=== PATIENT | female | born 1995 | race Caucasian/White ===

== ENCOUNTER → 2016-04-08 | Outpatient (REF) | payer OTHER ==
[~2016-04-08] MED LIST: ACET-654 PO; CIPR500T89 PO; IBUP60TA PO; PERCOCET PO
[2016-04-08 18:43] LABS: ALBUMIN 3.9 GM/DL (3.2-5.2); ALKALINE PHOSPHATASE 94 U/L (45-117); ALT/SGPT 56 U/L (12-78); ANION GAP 7 MEQ/L (8-16); AST/SGOT 26 U/L (15-37); BILIRUBIN,TOTAL 0.3 MG/DL (0.2-1.0); BLOOD UREA NITROGEN 12 MG/DL (7-18); CALCIUM LEVEL 8.9 MG/DL (8.5-10.1); CARBON DIOXIDE LEVEL 26 MEQ/L (21-32); CHLORIDE LEVEL 106 MEQ/L (98-107); CREATININE FOR GFR 0.74 MG/DL (0.55-1.02); GLOMERULAR FILTRATION RATE > 60.0 (>60); GLUCOSE, FASTING 82 MG/DL (70-105); POTASSIUM SERUM 4.8 MEQ/L (3.5-5.1); SODIUM LEVEL 139 MEQ/L (136-145); TOTAL PROTEIN 7.8 GM/DL (6.4-8.2)
[2016-04-08 18:44] LABS: BASO % 0.4 % (0.0-1.0); EOS # 0.2 K/mm3 (0.0-0.50); EOS % 1.7 % (0.0-3.0); LARGE UNSTAINED CELL # 0.2 K/mm3 (0.0-0.4); LARGE UNSTAINED CELL % 1.7 % (0.0-4.0); LYMPH # 3.3 K/mm3 (1.5-6.5); LYMPH % 23.6 % (24.0-44.0); MEAN CORPUSCULAR HEMOGLOBIN 27.6 pg (27.0-33.0); MEAN CORPUSCULAR HGB CONC 32.2 g/dl (32.0-36.5); MEAN CORPUSCULAR VOLUME 85.8 fl (80.0-96.0); MONO # 0.7 K/mm3 (0.0-0.8); MONO % 5.2 % (0.0-5.0); NEUTROPHILS # 9.3 K/mm3 (1.8-7.7); NEUTROPHILS % 67.5 % (36.0-66.0); PLATELET COUNT, AUTOMATED 331 k/mm3 (150-450); RED CELL DISTRIBUTION WIDTH 12.2 % (11.5-14.5); WHITE BLOOD COUNT 13.8 K/mm3 (4.0-10.0)
== END ==
LOC: M LABSMT 16:47
PROVIDERS: ATTEND Physician Assistant
DX: R19.5 Other fecal abnormalities (principal)

== ENCOUNTER → 2016-04-14 | Outpatient (CLI) | payer OTHER ==
[~2016-04-14] MED LIST changes: +GASTROGRAFIN SOLUTION 30ML (Q9963) As Ordered ONE; +ISOVUE-370 76% 100ML VIAL (Q9967) As Ordered ONE
--- NOTE | 2016-04-15 10:37 | REP ---
CT ABDOMEN AND PELVIS WITHOUT AND WITH IV CONTRAST: WITH ORAL CONTRAST. HISTORY: Evaluate for inflammatory bowel disease. Blood and mucus in the stool for the last month. COMPARISON STUDY: March 24, 2015 CT CONTRAST DOSE: 100 mL of Isovue-[address] FINDINGS: Preliminary digital spout liner radiograph is unremarkable. The lung bases are clear. There is no evidence of pleural effusion or upper abdominal ascites. There is regional moderate fatty infiltration of the liver. There are areas of fat sparing in the left lobe adjacent to the gallbladder. No hepatic mass lesion is seen. The spleen is unremarkable. No adrenal lesion is seen. No pancreatic abnormality is observed. Gallbladder is unremarkable. No retroperitoneal mass or adenopathy is seen. Normal caliber aorta is observed. A normal appendix is seen. Small and large intestinal bowel loops are normal in the abdomen and pelvis. No obstructive lesion is seen. No mural thickening, fistula, or abscess is seen. Uterus is tipped somewhat to the left but unremarkable. A vaginal tampon is noted in place. No ovarian abnormality is seen. Urinary bladder is intact. No abdominal wall defect is observed. IMPRESSION: 1. Moderate regional pattern of fatty infiltration of the liver. 2. Otherwise unremarkable CT study of the abdomen and pelvis. No CT evidence to suggest Crohn disease or other inflammatory bowel change. Normal appendix seen. Signed by Torey George MD 04/15/2016 01:13 P
== END ==
LOC: M RAD 15:28
PROVIDERS: ATTEND Physician Assistant
DX: R19.5 Other fecal abnormalities (principal)

== ENCOUNTER → 2016-06-02 | Outpatient (REF) | payer OTHER ==
[~2016-06-02] MED LIST changes: -GASTROGRAFIN SOLUTION 30ML (Q9963) As Ordered ONE; -ISOVUE-370 76% 100ML VIAL (Q9967) As Ordered ONE
== END ==
LOC: M LAB REF 17:53
PROVIDERS: ATTEND Internal Medicine Gastroenterology
DX: R19.7 Diarrhea, unspecified (principal)

== ENCOUNTER → 2016-06-08 | Outpatient (CLI) | payer OTHER ==
[~2016-06-08] VITALS: Ht 157.5 cm; Wt 93.4 kg
[~2016-06-08] MED LIST changes: +NS 1,000 ML IV ONE; +PROPOFOL 200 MG/20 ML VIAL As Ordered ONE; +SIMETHICONE 40MG/0.6ML DROPS 30ML As Ordered ONE
--- NOTE | 2016-06-08 15:56 | ROOR ---
Patient Name: Audrey Rodriguez Procedure Date: 06/08/2016 3:19 PM Date of : 1995 Age: 20 Room: [facility] Gender: Female Note Status: Finalized Procedure: Colonoscopy Indications: Rectal bleeding, Proctalgia, Rectal pain Providers: Rey ANGELO MD Referring MD: Anette LANTIGUA DO Requesting Provider: Medicines: Monitored Anesthesia Care Complications: No immediate complications. Procedure: Pre-Anesthesia Assessment: - The heart rate, respiratory rate, oxygen saturations, blood pressure, adequacy of pulmonary ventilation, and response to care were monitored throughout the procedure. The Colonoscope was introduced through the anus and advanced to 7 cm into the ileum. The colonoscopy was performed without difficulty. The patient tolerated the procedure well. The quality of the bowel preparation was good. Findings: The perianal and digital rectal examinations were normal. Pertinent negatives include no anal lesion or abnormality was detected. The terminal ileum appeared normal. Inflammation characterized by altered vascularity, congestion (edema) and erythema was found in a continuous and circumferential pattern in the rectum. The area 3 cm proximal to anus was spared. This was moderate in severity. Biopsies were taken with a cold forceps for histology. The exam was otherwise without abnormality. Two biopsies were taken every 10 cm with a cold forceps from the ascending colon, transverse colon, descending colon, sigmoid colon and rectum. These biopsy specimens were sent to Pathology. Impression: - Ulcerative Proctitis. -Inflammation was found in the rectum from 0 to 3 cm from verge. (distal rectum only). This was moderate in severity. Biopsied The perianal exam and the examined portion of the ileum are normal. - The rest of the colon is normal. - The perianal exam was normal. - The terminal ileum is normal. - Biopsies were taken from the ascending colon, transverse colon, descending colon, sigmoid colon and rectum. Recommendation: - Use Canasa 1000 mg suppository 1 per rectum QHS for 3 months. - (the script was sent to your pharmacy on file) - Return to my office in 1 month. - will call you for appt Rey Angelo MD Rey ANGELO MD 06/08/2016 3:55:49 PM This report has been signed electronically. Number of Addenda: 0 Note Initiated On: 06/08/2016 3:19 PM Estimated Blood Loss: Estimated blood loss: none.
[2016-06-08 16:09] VITALS: BP 129/75
== END | disposition home or self-care (01) ==
LOC: M OPP 14:15
PROVIDERS: ATTEND Internal Medicine Gastroenterology
DX: K62.5 Hemorrhage of anus and rectum (principal); R10.2 Pelvic and perineal pain; K62.89 Other specified diseases of anus and rectum; K51.211 Ulcerative (chronic) proctitis with rectal bleeding; F17.210 Nicotine dependence, cigarettes, uncomplicated

== ENCOUNTER → 2017-11-03 | Outpatient (REF) | payer OTHER | LOC: M LAB REF 16:55 | DX: J06.9 Acute upper respiratory infection, unspecified (principal) ==

== ENCOUNTER → 2017-12-15 | Outpatient (CLI) | payer OTHER | LOC: M RAD 11:40 | DX: Z36.89 Encounter for other specified antenatal screening (principal); Z3A.01 Less than 8 weeks gestation of pregnancy | CPT/HCPCS: 76801 ==

== ENCOUNTER 2018-01-05 23:53 | Emergency (ER) | payer OTHER ==
[2018-01-06 00:47] LABS: BASO # 0.1 10^3/uL (0.0-0.2); BASO % 0.4 % (0.0-1.0); EOS # 0.2 10^3/uL (0.0-0.50); EOS % 1.5 % (0.0-3.0); HEMATOCRIT 36.2 % (36.0-47.0); HEMOGLOBIN 12.2 g/dl (12.0-15.5); IMMATURE GRANULOCYTE % 0.5 % (0-3.0); LYMPH # 3.6 10^3/uL (1.5-6.5); LYMPH % 26.6 % (24.0-44.0); MEAN CORPUSCULAR HEMOGLOBIN 28.4 pg (27.0-33.0); MEAN CORPUSCULAR HGB CONC 33.7 g/dl (32.0-36.5); MEAN CORPUSCULAR VOLUME 84.2 fl (80.0-96.0); MONO # 0.9 10^3/uL (0.0-0.8); MONO % 6.8 % (0.0-5.0); NEUTROPHILS # 8.8 10^3/uL (1.8-7.7); NEUTROPHILS % 64.2 % (36.0-66.0); PLATELET COUNT, AUTOMATED 316 10^3/uL (150-450); RED CELL DISTRIBUTION WIDTH 12.6 % (11.5-14.5); WHITE BLOOD COUNT 13.7 10^3/uL (4.0-10.0)
[2018-01-06 01:37] LABS: HCG, SERUM QUANTITATIVE 5914 MIU/ML
[2018-01-06 02:11] LABS: AB SCREEN (INDIRECT COOMBS)VIS 1 1
[2018-01-06] MEDS: RHOGAM 300 MCG (1500 IU) INJ (J2790) IM (02:21)
== END 2018-01-06 02:55 | disposition home or self-care (01) ==
LOC: M ED 23:53
DX: O03.4 Incomplete spontaneous abortion without complication (principal); O99.341 Other mental disorders complicating pregnancy, first trimester; F33.9 Major depressive disorder, recurrent, unspecified; O99.611 Diseases of the digestive system complicating pregnancy, first trimester; K21.9 Gastro-esophageal reflux disease without esophagitis; Z3A.10 10 weeks gestation of pregnancy; O99.331 Smoking (tobacco) complicating pregnancy, first trimester; F17.210 Nicotine dependence, cigarettes, uncomplicated; Z79.899 Other long term (current) drug therapy
CPT/HCPCS: 76801

== ENCOUNTER → 2019-05-04 | Outpatient (REF) | payer OTHER ==
[~2019-05-04] MED LIST changes: -ACET-654 PO; +ACET1TAB55 PO; +CIPR-249 PO; -CIPR500T89 PO; +DULO1CAP6; +FAMO40TA3; +IBUP600T42 PO; -IBUP60TA PO; -NS 1,000 ML IV ONE; +PREN1TAB18 PO; +PROG1CAP9; -PROPOFOL 200 MG/20 ML VIAL As Ordered ONE; -SIMETHICONE 40MG/0.6ML DROPS 30ML As Ordered ONE
[2019-05-04 18:10] LABS: CHLAMYDIA DNA AMPLIFICATION NEGATIVE (NEGATIVE); GC DNA AMPLIFICATION NEGATIVE (NEGATIVE)
== END ==
LOC: M WUC 15:58
PROVIDERS: ATTEND Physician Assistant
DX: R30.0 Dysuria (principal)

== ENCOUNTER → 2019-08-15 | Outpatient (REF) | payer OTHER ==
[2019-08-15 17:44] LABS: HEMATOCRIT 37.1 % (36.0-47.0); HEMOGLOBIN 12.1 g/dl (12.0-15.5); MEAN CORPUSCULAR HGB CONC 32.6 g/dl (32.0-36.5); MEAN CORPUSCULAR VOLUME 85.9 fl (80.0-96.0); PLATELET COUNT, AUTOMATED 317 10^3/uL (150-450); RED BLOOD COUNT 4.32 10^6/uL (4.00-5.40); WHITE BLOOD COUNT 12.9 10^3/uL (4.0-10.0)
[2019-08-15 18:00] LABS: HEMOGLOBIN A1c 6.9 %
[2019-08-15 18:13] LABS: TOTAL PROTEIN,RANDOM URINE 16.7 MG/DL (0.0-12.0)
[2019-08-15 18:14] LABS: ALT/SGPT 19 U/L (12-78); BILIRUBIN,TOTAL 0.1 MG/DL (0.2-1.0); CREATININE FOR GFR 0.69 MG/DL (0.55-1.30); GLOMERULAR FILTRATION RATE > 60.0 (>60); GLUCOSE CHALLENGE TEST 1 HOUR 192 MG/DL (LESS THAN 140); LDH LACTATE DEHYDROGENASE 132 U/L (84-246); URIC ACID 3.3 MG/DL (2.6-6.0)
[2019-08-15 18:47] LABS: PROGESTERONE 11.71 NG/ML
[2019-08-15 19:26] LABS: HEPATITIS C VIRUS ABY INDEX 0.1 INDEX (<0.8)
[2019-08-15 19:27] LABS: HIV 1&2 SCREEN CENTAUR NEGATIVE (NEGATIVE)
[2019-08-15 20:29] LABS: CHLAMYDIA DNA AMPLIFICATION NEGATIVE (NEGATIVE); GC DNA AMPLIFICATION NEGATIVE (NEGATIVE)
== END ==
LOC: M PLALAB 14:45
PROVIDERS: ATTEND Advanced Practice Midwife
DX: O99.211 Obesity complicating pregnancy, first trimester (principal)

== ENCOUNTER 2019-08-20 07:40 | Emergency (ER) | payer OTHER ==
[~2019-08-20] VITALS: Ht 157.5 cm; Wt 110.4 kg
[2019-08-20 08:16] LABS: BASO % 0.3 % (0.0-1.0); EOS # 0.1 10^3/uL (0.0-0.5); EOS % 0.7 % (0.0-3.0); HEMATOCRIT 37.7 % (36.0-47.0); HEMOGLOBIN 12.6 g/dl (12.0-15.5); LYMPH # 2.5 10^3/uL (1.5-5.0); LYMPH % 19.7 % (24.0-44.0); MEAN CORPUSCULAR HEMOGLOBIN 28.1 pg (27.0-33.0); MEAN CORPUSCULAR HGB CONC 33.4 g/dl (32.0-36.5); MEAN CORPUSCULAR VOLUME 84.2 fl (80.0-96.0); MONO # 0.8 10^3/uL (0.0-0.8); MONO % 6.6 % (0.0-5.0); NEUTROPHILS # 9.2 10^3/uL (1.5-8.5); NEUTROPHILS % 72.2 % (36.0-66.0); PLATELET COUNT, AUTOMATED 315 10^3/uL (150-450); RED BLOOD COUNT 4.48 10^6/uL (4.00-5.40); WHITE BLOOD COUNT 12.7 10^3/uL (4.0-10.0)
[2019-08-20 09:29] VITALS: BP 135/74
--- NOTE | 2019-08-20 09:33 | REP ---
REASON: Vaginal bleeding. There are no priors for comparison. Prior examination was obtained at private offices are not available for review. Within the uterus, there is anechoic structure with increased echoes surrounding it consistent with a decidual reaction. Within the gestational sac, there is echogenic material consistent with a pole with a mean crown-rump length measurement which is consistent with an 7-vdlv-9-day gestational age. Based on that, the estimated date of delivery is 03/27/2020. Doppler interrogation of the pole shows a heart rate of 157 beats per minute. No chorionic or subchorionic abnormality was noted. Evaluation of the maternal adnexal spaces showed no abnormalities. IMPRESSION: Early OB ultrasound as described above. Electronically Signed by Douglas London DO 08/20/2019 09:56 A
== END 2019-08-20 09:31 | disposition home or self-care (01) ==
LOC: M ED 07:40
DX: O26.891 Other specified pregnancy related conditions, first trimester (principal); N89.9 Noninflammatory disorder of vagina, unspecified; Z3A.08 8 weeks gestation of pregnancy

== ENCOUNTER → 2019-08-29 | Outpatient (CLI) | payer OTHER | LOC: M LAB 08:41 | PROVIDERS: ATTEND Advanced Practice Midwife | DX: O99.211 Obesity complicating pregnancy, first trimester (principal); E66.9 Obesity, unspecified ==

== ENCOUNTER → 2019-10-31 | Outpatient (CLI) | payer MEDICAID, OTHER, SELFPAY | LOC: M RAD 16:01 | PROVIDERS: ATTEND Specialist | DX: Z34.82 Encounter for supervision of other normal pregnancy, second trimester (principal); Z3A.18 18 weeks gestation of pregnancy ==

== ENCOUNTER → 2019-11-23 | Outpatient (CLI) | payer OTHER ==
--- NOTE | 2019-11-23 12:08 | REP ---
INDICATION: PREG, F/U ANATOMY COMPARISON: 10/31/2019 TECHNIQUE: Transabdominal obstetrical ultrasound with color Doppler evaluation. FINDINGS: Examination demonstrates a single live intrauterine in transverse presentation. motion is identified by technologist. Placenta is noted anterior and grade 1 without evidence for placenta previa or abruption. Amniotic fluid volume is normal. Cervix measures 4.1 cm in length and appears closed. No evidence for nuchal cord. Gestational age by current measurements 22 weeks 2 days with SADI 03/26/2020. FHR equals 163 beats per minute. Estimated weight 454 grams (40thpercentile). Anatomical assessment demonstrates normal cranium, cerebellum/posterior fossa, nose and lips, lungs, stomach, kidneys/bladder, extremities and spine. Continued limited evaluation of the facial profile, heart/ventricular outflow tracts, cord insertion noted. IMPRESSION: 1. Single live intrauterine in transverse lie demonstrating appropriate estimated weight. 2. Continue limited evaluation of the facial profile, heart/ventricular outflow tracts and cord insertion. Remainder of the anatomical assessment in conjunction with prior examination appears normal. <Electronically signed by Kevin Álvarez > 11/23/19 [id number]
== END ==
LOC: M RAD 10:38
PROVIDERS: ATTEND Advanced Practice Midwife
DX: O99.212 Obesity complicating pregnancy, second trimester (principal); E66.9 Obesity, unspecified; O32.2XX0 Maternal care for transverse and oblique lie, not applicable or unspecified; Z3A.22 22 weeks gestation of pregnancy

== ENCOUNTER → 2019-12-13 | Outpatient (CLI) | payer OTHER ==
--- NOTE | 2019-12-13 14:12 | REP ---
INDICATION: PREG 24 WKS F/U ANATOMY/FILE ROOM. COMPARISON: 11/23/2019 WELL OTHER PRIOR EXAMS. TECHNIQUE: Real-time sonographic evaluation of the gravid uterus performed. FINDINGS: Estimated gestational age is25 WEEKS 0 DAYS, EDC 03/27/2020. Today's measurements indicate appropriate growth. Presentation: BREECH Placenta ANTERIOR, grade 0, without evidence of placenta previa. heart rate is recorded at 153 beats per minute. Amniotic fluid is subjectively normal. Closed cervical length is measured at 3.4 cm. Biometry chart: BPD: 61 mm, 24 weeks 5 days, 42ND percentile. HC: 225 mm, 24 weeks 4 days, 40TH percentile AC: 203 mm, 24 weeks 6 days, 47TH percentile Femur length: 44 mm, 24 weeks 3 days, 36TH percentile HC to AC ratio: 1.11, normal range 1.01-1.20. Estimated weight: 722g, 46TH percentile. anatomy: Cranium: Grossly normal Lateral Ventricles/Choroid Plexus: Grossly normal Posterior Fossa/Cerebellum: Grossly normal Nose/lips/profile: Grossly normal Four chamber heart: Grossly normal Right ventricular outflow tract: Grossly normal Left ventricular outflow tract: Grossly normal Left-sided stomach: Grossly normal Kidneys: Grossly normal Bladder: Grossly normal Cord Insertion: Grossly normal 3 vessel cord: Grossly normal Spine: NOT WELL VISUALIZED, PREVIOUSLY DOCUMENTED. IMPRESSION: Viable single intrauterine gestation as above. <Electronically signed by Sean Hester > 12/13/19 [id number]
== END ==
LOC: M RAD 11:58
PROVIDERS: ATTEND Obstetrics & Gynecology
DX: Z36.2 Encounter for other antenatal screening follow-up (principal); Z3A.25 25 weeks gestation of pregnancy

== ENCOUNTER → 2019-12-26 | Outpatient (REF) | payer OTHER ==
[2019-12-26 13:49] LABS: HEMATOCRIT 37.8 % (36.0-47.0); HEMOGLOBIN 12.1 g/dl (12.0-15.5); MEAN CORPUSCULAR HEMOGLOBIN 27.8 pg (27.0-33.0); MEAN CORPUSCULAR VOLUME 86.9 fl (80.0-96.0); PLATELET COUNT, AUTOMATED 307 10^3/uL (150-450); RED BLOOD COUNT 4.35 10^6/uL (4.00-5.40); WHITE BLOOD COUNT 15.2 10^3/uL (4.0-10.0)
[2019-12-26 14:40] LABS: HEMOGLOBIN A1c 5.5 %
== END ==
LOC: M PLALAB 10:46
PROVIDERS: ATTEND Obstetrics & Gynecology
DX: O24.112 Pre-existing type 2 diabetes mellitus, in pregnancy, second trimester (principal); Z3A.00 Weeks of gestation of pregnancy not specified

== ENCOUNTER → 2020-01-09 | Outpatient (CLI) | payer OTHER ==
--- NOTE | 2020-01-09 09:31 | REP ---
INDICATION: GROWTH. COMPARISON: December 13, 2019.. TECHNIQUE: Transabdominal obstetric sonography. FINDINGS: Scanning through the gravid uterus demonstrates a viable single intrauterine gestation in cephalic lie. motion is observed and heart rate is recorded at 134 beats per minute. A anterior placenta is seen, grade 1, without evidence of placenta previa. Amniotic fluid is subjectively normal. Closed cervical length is measured at 3.1 cm transabdominally. No extrauterine abnormality is observed. . Biometry chart: BPD 7.5 cm, 30 weeks 1 day Head circumference 27.3 cm, 29 weeks 6 days Abdominal circumference 25.2 cm, 29 weeks 2 days Femur length 5.5 cm, 29 weeks 1 day Humeral length 5.0 cm, 29 weeks 0 days HC AC ratio normal 1.09 Cephalic index normal 0.77 Estimated weight 1384 g, 3 lb 0 oz, 74th percentile for 28 weeks 3 days IMPRESSION: Viable single intrauterine gestation at 29 weeks 3 days by today's composite sonographic criteria. SADI by today's sonography March 23, 2020. There is evidence of appropriate interval growth.. No complication identified. <Electronically signed by Robert George > 01/09/20 [id number]
== END ==
LOC: M WHC 08:34
PROVIDERS: ATTEND Obstetrics & Gynecology
DX: O99.213 Obesity complicating pregnancy, third trimester (principal); O24.313 Unspecified pre-existing diabetes mellitus in pregnancy, third trimester; Z3A.29 29 weeks gestation of pregnancy; E66.9 Obesity, unspecified

== ENCOUNTER → 2020-02-04 | Outpatient (CLI) | payer OTHER ==
--- NOTE | 2020-02-04 09:47 | REP ---
INDICATION: PRE EXISTING DIABETES,GROWTH. COMPARISON: Comparison study January 09, 2020.. TECHNIQUE: Transabdominal obstetric sonography. FINDINGS: Scanning through the gravid uterus demonstrates a viable single intrauterine gestation in cephalic lie. motion is observed and heart rate is recorded at 147 beats per minute. A anterior placenta is seen, grade 1, without evidence of placenta previa. Amniotic fluid is subjectively normal. Closed cervical length is measured at 3.1 cm transabdominally. No extrauterine abnormality is observed. Amniotic fluid is subjectively normal.. anatomic survey was not performed at this exam.. Biometry chart: BPD 8.6 cm, 34 weeks 4 days Head circumference 31.2 cm, 34 weeks 6 days Abdominal circumference 29.3 cm, 33 weeks 2 days Femur length 6.4 cm, 33 weeks 1 day Humeral length 5.9 cm, 34 weeks 1 day HC AC ratio normal 1.06 Cephalic index normal 0.77 Estimated weight 2221 g, 4 lb 14 oz, 83rd percentile for 32 weeks 1 day IMPRESSION: Viable single intrauterine gestation at 34 weeks 0 days by today's composite sonographic criteria. SADI by today's sonography March 17, 2020. Expected gestational age estimate based on LMP is 32 weeks 1 day. SADI by LMP March 30, 2020.. No complication identified. <Electronically signed by Robert George > 02/04/20 [id number]
== END ==
LOC: M WHC 09:06
PROVIDERS: ATTEND Obstetrics & Gynecology
DX: O24.312 Unspecified pre-existing diabetes mellitus in pregnancy, second trimester (principal); O99.212 Obesity complicating pregnancy, second trimester

== ENCOUNTER → 2020-02-21 | Outpatient (REF) | payer OTHER | LOC: M PLALAB 17:27 | PROVIDERS: ATTEND Obstetrics & Gynecology | DX: Z3A.35 35 weeks gestation of pregnancy (principal) ==

== ENCOUNTER → 2020-02-25 | Outpatient (REF) | payer OTHER ==
[~2020-02-25] MED LIST changes: +ASPI81CH33 PO; +IBUP80TA PO; +INSUNSD SC; +INSURSD SC; +INSURSDRX SC
== END ==
LOC: M SFHCWAGY 17:01
PROVIDERS: ATTEND Obstetrics & Gynecology
DX: Z3A.35 35 weeks gestation of pregnancy (principal)

== ENCOUNTER → 2020-03-03 | Outpatient (CLI) | payer OTHER ==
--- NOTE | 2020-03-03 09:53 | REP ---
INDICATION: OBESITY COMPLICATING , PRE EXISTING DIABETES MELLIT COMPARISON: 02/04/2020 TECHNIQUE: Transabdominal obstetrical ultrasound with color Doppler evaluation. FINDINGS: Examination demonstrates a single live intrauterine in cephalic presentation. motion is identified by technologist. Placenta is noted anterior and grade 2 without evidence for placenta previa or abruption. Amniotic fluid volume is normal. Cervix measures 3.1 cm in length and appears closed.. Gestational age by LMP 36 weeks 1 day with SADI 03/30/2020. Gestational age by current measurements 37 weeks 0 days with SADI 03/24/2020. FHR equals 158 beats per minute. Estimated weight 3141 grams (80thpercentile). STEPHEN: 16.0 cm (7.7-24.9) IMPRESSION: Single live advanced gestation in cephalic presentation demonstrating appropriate estimated weight and growth. <Electronically signed by Kevin Álvarez > 03/03/20 [id number]
== END ==
LOC: M WHC 09:07
PROVIDERS: ATTEND Obstetrics & Gynecology
DX: O99.212 Obesity complicating pregnancy, second trimester (principal); O24.312 Unspecified pre-existing diabetes mellitus in pregnancy, second trimester; E66.9 Obesity, unspecified; Z3A.36 36 weeks gestation of pregnancy

== ENCOUNTER 2020-03-12 08:02 | Inpatient (IN) | payer OTHER ==
[2020-03-12] VITALS (10 sets, daily range): BP systolic 106–131; BP diastolic 57–73
[~2020-03-12] VITALS: Ht 157.5 cm; Wt 119.6 kg
[~2020-03-12 08:02] MED LIST changes: -ASPI81CH33 PO; -IBUP80TA PO; -INSUNSD SC; -INSURSD SC; -INSURSDRX SC
[2020-03-12] MEDS ORDERED: ASPI81CH33 PO (08:25)
[2020-03-12] MEDS ORDERED: INSURSDRX SC (08:43)
[2020-03-12] MEDS ORDERED: INSURSD SC (08:43)
[2020-03-12] MEDS ORDERED: INSUNSD SC ×2 (08:43)
[2020-03-12] MEDS ORDERED: INSULIN IV RATE CHANGE DOCUMENTATION ML/HR XX SCH (10:15)
[2020-03-12] MEDS: miSOPROStol 50MCG 1/2 TABLET PO SCH ×3 (10:36→19:34)
[2020-03-12] MEDS: NS 1,000 ML IV SCH ×2 (10:36→18:52)
[2020-03-12 11:37] LABS: HEMOGLOBIN 11.7 g/dl (12.0-15.5); MEAN CORPUSCULAR HEMOGLOBIN 26.5 pg (27.0-33.0); MEAN CORPUSCULAR HGB CONC 31.6 g/dl (32.0-36.5); MEAN CORPUSCULAR VOLUME 83.9 fl (80.0-96.0); PLATELET COUNT, AUTOMATED 283 10^3/uL (150-450); RED BLOOD COUNT 4.41 10^6/uL (4.00-5.40); WHITE BLOOD COUNT 12.1 10^3/uL (4.0-10.0)
--- NOTE | 2020-03-12 12:41 | HPE ---
HISTORY AND PHYSICAL DATE OF ADMISSION: 03/12/2020 HISTORY OF PRESENT ILLNESS: Tristen is a 24-year-old 5 para 0-0-4-0. She is 37 weeks and 3 days based on EDC of 03/30/2020 by first trimester ultrasound. She presents to Labor and Delivery today for induction of labor for consult with Dr. Tera Huerta due to poorly controlled preexisting diabetes. She does report movement. She denies vaginal bleeding, leakage of fluid and painful contractions. Her care was initiated at [facility] in the first trimester. Her course has been complicated by pre-gestational diabetes and she has been on insulin since November 2019, a history of polycystic ovarian syndrome, exercise induced asthma, and obesity as well as recurrent abortions. OBSTETRIC HISTORY: May 2013, six weeks, spontaneous miscarriage; 2013 at 4 weeks spontaneous miscarriage; in 2015 miscarriage at 6 weeks; December 2017 miscarriage of twin gestation, spontaneous. OBSTETRIC LABS: A negative, antibody screen negative, syphilis negative, gonorrhea/chlamydia negative, hepatitis B surface antigen negative, hepatitis C antibody nonreactive, HIV nonreactive, rubella immune. Her gestational diabetic screening was abnormal at 198. Her three hour glucose tolerance test also abnormal, fasting 114, one hour 227, two hour 159 and three hour 91. GBS is negative. She has undergone a recent growth ultrasound on 03/03/2020, the fetus is in cephalic presentation, STEPHEN of 16 cm with an estimated weight of 3141 grams in the 80th percentile. Hemoglobin A1c last noted on December 26, 2019 was 5.5. PAST MEDICAL HISTORY: Asthma, obesity, PCOS. PAST SURGICAL HISTORY: Tonsillectomy, left middle finger. FAMILY HISTORY: Cardiac arrhythmia, bipolar, schizophrenia, alcohol abuse, drug addiction, hypotension. SOCIAL HISTORY: The patient is single, however her partner is at bedside. She is a nonsmoker. She denies alcohol and drug use. She denies any history of sexually transmitted infections and she denies history of abuse, physical, sexual and emotional. ALLERGIES: No known drug allergies. CURRENT MEDICATIONS: 1. Insulin regimen of every a.m. 14 units of regular, 24 units of NPH, every p.m. 40 units of NPH, 24 of regular. 2. vitamin. OBJECTIVE: Temperature 98, pulse 90, respirations 18, blood pressure is 123/73. She is alert and oriented x3. She is talking and smiling, she is in no discomfort. heart rate is 130 with moderate variability, positive accelerations, negative decelerations. There is no pattern of contractions. Her abdomen is gravid, cephalic presentation. Estimated weight 8 pounds. Sterile vaginal exam: 1 cm dilated, 50% effaced, -3 station, posterior, very soft, no show with the exam. ASSESSMENT: Intrauterine at 37 and 3/7th weeks, heart rate Category 1, preexisting diabetes with insulin, poorly controlled throughout . PLAN: Admit the patient to Labor and Delivery, routine laboratories, out of bed ad dick at this time, diabetic diet, insulin drip, fingersticks every 2 hours, currently every hour in active labor, normal saline. The patient does request an epidural when she is uncomfortable. I plan to start Misoprostol for cervical ripening, will transition to Pitocin, may consider a Ramirez bulb. The risks, benefits and alternatives have been reviewed. All of her questions as well as per partner's questions have been answered. She has been verbally consented for emergency surgery and blood products if they are necessary. I do anticipate cervical ripening.
[2020-03-12] MEDS: INSULIN REGULAR IN 0.9 % NACL 100 UNIT in IV 1 EA IV SCH ×4 (18:48→19:56)
[2020-03-13] VITALS (55 sets, daily range): BP systolic 89–128; BP diastolic 44–69
[2020-03-13] MEDS: miSOPROStol 50MCG 1/2 TABLET PO SCH (03:30)
[2020-03-13] MEDS: INSULIN REGULAR IN 0.9 % NACL 100 UNIT in IV 1 EA IV SCH ×2 (07:35)
[2020-03-13] MEDS ORDERED: LR 1,000 ML IV SCH (09:08)
[2020-03-13] MEDS ORDERED: OXYTOCIN DRIP 30 UNITS in IV 1 EA IV SCH (09:15)
[2020-03-13] MEDS ORDERED: MIRALAX *UNIT DOSE* 17GM PACKET PO PRN (09:15)
[2020-03-13] MEDS: NS 1,000 ML IV SCH ×3 (10:00→15:50)
[2020-03-13] MEDS ORDERED: diphenhydrAMINE 50MG/ML VIAL (J1200) IV PRN (10:45)
[2020-03-13] MEDS ORDERED: FENTANYL/ROPIVACAINE/NACL BAG 100 ML EPIDURAL SCH (10:45)
[2020-03-13] MEDS ORDERED: NALOXONE INJ 0.4MG/1ML VIAL (J2310 PER 1MG) IV PRN (10:45)
[2020-03-13] MEDS ORDERED: REFRIGERATOR IV KEYS XX PRN (10:45)
[2020-03-13] MEDS ORDERED: ONDANSETRON 4MG/2ML VIAL IV PRN (10:45)
[2020-03-13] MEDS ORDERED: EPIDURAL COMMENT XX SCH (10:45)
[2020-03-13] MEDS ORDERED: EPIDURAL/PCA KEYS XX PRN (10:45)
[2020-03-13] MEDS: ePHEDrine SULFATE 25 MG/5 ML(5MG/ML) SYRINGE IV PRN ×3 (11:42→12:28)
[2020-03-13] MEDS ORDERED: LACTATED RINGER'S 1000 ML IV PRN (14:30)
--- NOTE | 2020-03-13 17:52 | IPNPDOC ---
Text Note Date of Service The patient was seen on 03/13/20. NOTE S: Patient is comfortable following her epidural. Currently on Pitocin at 10 milliunits. O: vss AF Cat I tracing, with reg ctx Gen: well appearing, NAD cx: 5/75/-2, AROM clear A/P: IOL for GDM Reassuring status - will cont to increase pitocin - plan to reassess and 5-6 hours VS,Fishbone, I+O VS, Fishbone, I+O Vital Signs Date Time Temp Pulse Resp B/P (MAP) Pulse Ox O2 Delivery O2 Flow Rate FiO2 03/13/20 15:47 98.1 103 18 114/58 (76) 03/13/20 14:48 100 03/13/20 10:46 Room Air I&O- Last 24 Hours up to 6 AM 03/13/20 05:59 Intake Total 1479 ml Output Total 1900 ml Balance -421 ml ORIN ROGERS MD. Mar 13, 2020 17:52
[2020-03-14] VITALS (11 sets, daily range): BP systolic 102–125; BP diastolic 51–86
[2020-03-14] MEDS ORDERED: AZITHROMYCIN INJ 500 MG, VIAL MATE ADAPTER 1 EACH in D5W 250 ML IV ONE (01:15)
[2020-03-14] MEDS ORDERED: BICITRA 30ML SOLN UDC PO SCH (01:30)
[2020-03-14] MEDS ORDERED: ceFAZolin SOD 2 GM in IV 1 EA IV ONE (01:30)
[2020-03-14] MEDS ORDERED: LIDOCAINE 2% W/EPINEPHRINE 20ML VIAL **PRES FREE As Ordered ONE (02:25)
[2020-03-14] MEDS ORDERED: ONDANSETRON 4MG/2ML VIAL As Ordered ONE (02:25)
[2020-03-14] MEDS ORDERED: MORPHINE PRES-FREE INJ 10 MG/10 ML VIAL (J2274) As Ordered ONE (02:25)
[2020-03-14] MEDS ORDERED: OXYTOCIN INJ 10 UNITS/ML VIAL (J2590) As Ordered ONE (02:25)
[2020-03-14] MEDS ORDERED: fentaNYL 100 MCG/2 ML INJECTION (J3010) As Ordered ONE (03:01)
[2020-03-14] MEDS ORDERED: METOCLOPRAMIDE INJ 10MG/2ML VIAL (J2765 PER 1) As Ordered ONE (03:03)
[2020-03-14] MEDS ORDERED: dexameTHASONE 4 MG/ML 1ML VIAL (J1100 PER 1MG) As Ordered ONE (03:04)
[2020-03-14] MEDS ORDERED: propofoL 200 MG/20 ML VIAL As Ordered ONE (03:20)
[2020-03-14] MEDS ORDERED: KETOROLAC 60MG 2ML VIAL As Ordered ONE (03:25)
[2020-03-14] MEDS: LR 1,000 ML IV SCH ×2 (03:36→11:36)
[2020-03-14] MEDS ORDERED: OXYTOCIN DRIP 30 UNITS in IV 1 EA IV SCH (03:36)
[2020-03-14] MEDS ORDERED: MOM 30ML SUSPENSION UDC PO PRN (03:45)
[2020-03-14] MEDS ORDERED: OXYTOCIN 30 UNITS IN 0.9% NaCl 500ML IV BAG (J2590) As Ordered ONE (03:45)
[2020-03-14] MEDS ORDERED: PERCOCET 5MG/325MG TAB PO PRN (03:45)
[2020-03-14] MEDS ORDERED: MEASLES,MUMPS,RUBELLA VACCINE INJ (MMR-II) (90707) SC SCH (03:45)
[2020-03-14] MEDS ORDERED: RHOGAM 300 MCG (1500 IU) INJ (J2790) IM SCH (03:45)
[2020-03-14] MEDS ORDERED: ONDANSETRON 4MG/2ML VIAL IV PRN ×3 (03:45→06:15)
[2020-03-14] MEDS ORDERED: fentaNYL 100 MCG/2 ML INJECTION (J3010) IV PRN (04:00)
[2020-03-14] MEDS ORDERED: LR 1,000 ML IV SCH (04:00)
[2020-03-14] MEDS ORDERED: NALBUPHINE HCL 10 MG/ML AMP (J2300) IV PRN ×2 (04:00→06:15)
[2020-03-14] MEDS ORDERED: NALOXONE INJ 0.4MG/1ML VIAL (J2310 PER 1MG) IV PRN ×2 (06:15)
[2020-03-14] MEDS ORDERED: diphenhydrAMINE 50MG/ML VIAL (J1200) IV PRN (06:15)
[2020-03-14] MEDS ORDERED: METOCLOPRAMIDE INJ 10MG/2ML VIAL (J2765 PER 1) IV PRN (06:15)
--- NOTE | 2020-03-14 08:06 | IPNPDOC ---
Progress Note Date of Service: Mar 14, 2020 Day#: 1 Progress Note SUBJECT: Doing well without complaints. Ambulating, voiding and pain is well-co ntrolled. Reports minimal lochia. OBJECTIVE: VITAL SIGNS: Within normal limits, afebrile. Alert and oriented times three. Abdomen: Fundus firm at U-2. Soft, NTTP. Incision: dressed Ext: neg calf tenderness. ASSESSMENT: /postoperative day #1 status post delivery. Recovering in stable condition. PLAN: 1. Continue routine /postoperative care 2. Discharge plans for tomorrow VS, I&O, 24H, Fishbone Vital Signs/I&O Vital Signs Date Time Temp Pulse Resp B/P (MAP) Pulse Ox O2 Delivery O2 Flow Rate FiO2 03/14/20 07:25 98.0 77 18 106/86 (93) 03/14/20 06:45 98 Room Air I&O- Last 24 Hours up to 6 AM 03/14/20 06:00 Intake Total 4449 ml Output Total 4750 ml Balance -301 ml Laboratory Data 24H LABS Laboratory Tests 2 03/13/20 08:35: Bedside Glucose (Misc Panel) 93 03/13/20 10:59: Bedside Glucose (Misc Panel) 93 03/13/20 12:48: Bedside Glucose (Misc Panel) 94 03/13/20 14:05: Bedside Glucose (Misc Panel) 81 03/13/20 15:21: Bedside Glucose (Misc Panel) 80 03/13/20 17:21: Bedside Glucose (Misc Panel) 79 03/13/20 19:35: Bedside Glucose (Misc Panel) 79 03/13/20 21:39: Bedside Glucose (Misc Panel) 82 03/13/20 22:34: Bedside Glucose (Misc Panel) 100 03/14/20 00:52: Bedside Glucose (Misc Panel) 96 03/14/20 05:53: Bedside Glucose (Misc Panel) 144H ORIN ROGERS MD. Mar 14, 2020 08:06
[2020-03-14] MEDS: PRENATAL VITAMINS CHEWABLE TABLET PO SCH (08:16)
[2020-03-14] MEDS: DOCUSATE SODIUM 100MG CAPSULE PO SCH ×2 (08:16→20:54)
[2020-03-14] MEDS: KETOROLAC 30 MG/ML 1ML VIAL IV SCH ×3 (08:17→20:55)
[2020-03-14] MEDS ORDERED: BOOSTRIX/ADACEL VACCINE (DIPHTH/PERTUSS/ACELL/TETANUS) 0.5ML SYR IM ONE (09:00)
[2020-03-14] MEDS ORDERED: SLF 3 ML SYR IV PRN (09:15)
--- NOTE | 2020-03-14 10:50 | ROOPDOC ---
[facility] Report Of Operation Report of Operation DATE OF PROCEDURE: 03/14/20 SURGEON: Krystyna Mcqueen M.D. REVENUE CYCLE ADMINISTRATOR: None PROCEDURE: Primary section PREOPERATIVE DIAGNOSIS: 1.Arrest of dilation POSTOPERATIVE DIAGNOSIS: 1.Arrest of dilation ANESTHESIA: Epidural ESTIMATED BLOOD LOSS: 700 mL URINE OUTPUT: 100 mL INTRAVENOUS FLUIDS: 800 mL of lactated Ringer's solution PREOPERATIVE ANTIBIOTICS: 2 g of Ancef and 500mg of azithromycin OPERATIVE FINDINGS: Liveborn male , Apgars 9 and 9. Weight 3370 g or 7 lbs. 7 oz. SPECIMENS: None DESCRIPTION OF PROCEDURE: After informed consent was obtained and written consent was reviewed. The patient was brought to the operating room. She was then placed in the supine position with a left lateral tilt. Ramirez catheter was placed and to gravity. Patient was then prepped and draped in the normal sterile fashion. A timeout operating room was performed identifying the patient, procedure be performed as well as drug allergies. Anesthesia was tested and deemed to be adequate. Pfannenstiel skin incision was made and this was carried down to the underlying rectus fascia. The fascia was then scored and this incision was extended bilaterally. The fascia was then dissected off the underlying rectus muscle superiorly and inferiorly. The rectus muscles were then in the midline. The peritoneum is then entered. Vesicouterine peritoneum was then tented and excised and a bladder flap was created. Mobius retractor was then placed. Next, a curvilinear incision was then made in the lower uterine segment. The head was brought to the level of the incision atraumatically and delivered along the shoulders and corpus. The cord was clamped x2. The infant was brought over to the warmer with a good cry. Placenta was drained and delivered grossly intact. The uterus was cleared of all clots and debris and the uterine incision was then closed using 0 Vicryl in a running locking fashion followed by a second layer of 0 Vicryl for imbrication. The abdomen suctioned. Surgical sites reinspected and noted be hemostatic. The retractor was then removed. The anterior peritoneum was then reapproximated with 3-0 Vicryl. The rectus muscles were reapproximated 3-0 Vicryl. The fascia was then closed using 0 Vicryl in a running nonlocking fashion. The subcutaneous tissues was then irrigated and suctioned. Subcutaneous tissue was reapproximated using 3-0 Vicryl. Several subdermal stitch is placed using 3-0 Vicryl and the skin was closed with 4-0 Monocryl and subcuticular fashion. This incision was then cleaned and dried and was dressed. The patient was then taken to recovery in stable condition. All counts were correct. The couple has decided to name the Óscar. KRYSTYNA MCQUEEN MD. Mar 14, 2020 10:50
[2020-03-14] MEDS: SLF 3 ML SYR IV SCH ×2 (14:41→21:34)
[2020-03-15 02:00] VITALS: BP 91/55
[2020-03-15] MEDS: IBUPROFEN 800 MG TAB PO SCH ×3 (05:01→21:44)
[2020-03-15 05:55] VITALS: BP 117/54
[2020-03-15] MEDS: SLF 3 ML SYR IV SCH ×3 (06:44→21:44)
[2020-03-15 07:01] LABS: HEMATOCRIT 26.5 % (36.0-47.0); HEMOGLOBIN 8.3 g/dl (12.0-15.5); MEAN CORPUSCULAR HEMOGLOBIN 26.8 pg (27.0-33.0); MEAN CORPUSCULAR HGB CONC 31.3 g/dl (32.0-36.5); MEAN CORPUSCULAR VOLUME 85.5 fl (80.0-96.0); PLATELET COUNT, AUTOMATED 210 10^3/uL (150-450); WHITE BLOOD COUNT 15.8 10^3/uL (4.0-10.0)
[2020-03-15] MEDS: DOCUSATE SODIUM 100MG CAPSULE PO SCH ×2 (08:24→21:44)
[2020-03-15] MEDS: PRENATAL VITAMINS CHEWABLE TABLET PO SCH (08:24)
[2020-03-15 09:52] VITALS: BP 119/60
--- NOTE | 2020-03-15 10:43 | IPNPDOC ---
Progress Note Date of Service: Mar 15, 2020 Day#: 1 Progress Note SUBJECT: Doing well without complaints. Ambulating, voiding and pain is well- controlled. Reports minimal lochia. OBJECTIVE: VITAL SIGNS: Within normal limits, afebrile. Alert and oriented times three. Abdomen: Fundus firm at U-2. Soft, NTTP. Incision: dressed Ext: neg calf tenderness. ASSESSMENT: /postoperative day #1 status post delivery. Recovering in stable condition. PLAN: 1. Continue routine /postoperative care 2. Discharge plans for tomorrow VS, I&O, 24H, Fishbone Vital Signs/I&O Vital Signs Date Time Temp Pulse Resp B/P (MAP) Pulse Ox O2 Delivery O2 Flow Rate FiO2 03/15/20 09:52 97.7 70 14 119/60 (79) 98 Room Air I&O- Last 24 Hours up to 6 AM 03/15/20 06:00 Intake Total 845 ml Output Total 1025 ml Balance -180 ml Laboratory Data 24H LABS Laboratory Tests 2 03/15/20 06:41: Nucleated Red Blood Cells % (auto) 0.0 CBC/BMP Laboratory Tests 03/15/20 06:41 ORIN ROGERS MD. Mar 15, 2020 10:43
[2020-03-15] MEDS ORDERED: IBUP80TA PO (10:56)
[2020-03-15] MEDS ORDERED: PERCOCET PO (10:56)
--- NOTE | 2020-03-15 11:07 | DS.PDOC ---
Discharge Summary General Date of Admission Mar 12, 2020 at 08:02 Date of Discharge 03/16/20 Attending Physician: ORIN ROGERS MD. Discharge Summary PROCEDURES PERFORMED DURING STAY: 1. Epidural 2. section . ADMITTING DIAGNOSES: 1. Induction for gestational diabetes. DISCHARGE DIAGNOSES: 1. Arrest of dilation status post section COMPLICATIONS/CHIEF COMPLAINT: Induction. HISTORY OF PRESENT ILLNESS: 18-year-old 2 para 0 presented for induction labor at 37+ weeks. Her induction progressed. She dilated to approximately 5 cm at which time she had a artificial rupture of membranes. She remained at 5 cm/75%/-2 for more than 6 hours. She was diagnosed with arrest of dilation consented for primary section for that indication. Patient did well following her section blood loss was 800 mL. Patient did well postoperatively by postoperative day #2 had met all discharge criteria is as discharged home in stable condition. DISCHARGE MEDICATIONS: Please see below. ALLERGIES: Please see below. PHYSICAL EXAMINATION ON DISCHARGE: VITAL SIGNS: Please see below. GENERAL: Well-appearing no acute distress ABDOMINAL EXAMINATION: Soft, appropriately tender. Incision was dressed EXTREMITIES: Negative for calf tenderness NEUROLOGICAL EXAMINATION: Grossly intact PSYCHIATRIC EXAMINATION: Appropriate LABORATORY DATA: Please see below. ACTIVITY: As tolerated. DIET: Regular DISCHARGE PLAN: Home DISCHARGE INSTRUCTIONS: 1. Remove dressing in 5-7 days 2. Remain on pelvic rest for 6 weeks 3. Reports severe pain, heavy vaginal bleeding, fever or incisional issues. DISCHARGE CONDITION: Stable. Vital Signs/I&Os Vital Signs Date Time Temp Pulse Resp B/P (MAP) Pulse Ox O2 Delivery O2 Flow Rate FiO2 03/15/20 09:52 97.7 70 14 119/60 (79) 98 Room Air I&O- Last 24 Hours up to 6 AM 03/15/20 06:00 Intake Total 845 ml Output Total 1025 ml Balance -180 ml Laboratory Data Labs 24H Laboratory Tests 2 03/15/20 06:41: Nucleated Red Blood Cells % (auto) 0.0 CBC/BMP Laboratory Tests 03/15/20 06:41 Discharge Medications Scheduled Ibuprofen (Ibuprofen) 800 Mg Tablet, 800 MG PO Q8H Pnv No.95/Ferrous Fum/Folic AC ( Vitamin Tablet) 1 Tab Tab, 1 TAB PO DAILY, (Reported) Scheduled PRN Oxycodone/Acetaminophen (Oxycodone-Acetaminophen 5-325) 1 Each Tablet, 1-2 TAB PO Q6H PRN for SEVERE PAIN (PS 8-10) Allergies Coded Allergies: No Known Allergies (Verified Allergy, Unknown, 03/12/20) ORIN ROGERS MD. Mar 15, 2020 11:07
[2020-03-15 14:00] VITALS: BP 109/59
[2020-03-15] MEDS: PERCOCET 5MG/325MG TAB PO PRN ×2 (14:02→21:44)
[2020-03-15 18:06] VITALS: BP 107/63
[2020-03-15 21:56] VITALS: BP 119/63
[2020-03-16 02:04] VITALS: BP 104/55
[2020-03-16] MEDS: IBUPROFEN 800 MG TAB PO SCH ×2 (05:47→13:45)
[2020-03-16] MEDS: SLF 3 ML SYR IV SCH ×2 (05:47→14:00)
[2020-03-16 06:14] VITALS: BP 122/58
[2020-03-16] MEDS: DOCUSATE SODIUM 100MG CAPSULE PO SCH (09:06)
[2020-03-16] MEDS: PRENATAL VITAMINS CHEWABLE TABLET PO SCH (09:06)
== END 2020-03-16 14:45 | disposition home or self-care (01) | DRG 540 ==
LOC: M LDI 08:02 → M OBS 03-14 05:18
PROVIDERS: ADMIT Advanced Practice Midwife; ATTEND Advanced Practice Midwife
PROC: 3E033VJ Introduction of Other Hormone into Peripheral Vein, Percutaneous Approach (ICD-10-PCS; 2020-03-12)
PROC: 10907ZC Drainage of Amniotic Fluid, Therapeutic from Products of Conception, Via Natural or Artificial Opening (ICD-10-PCS; 2020-03-14)
PROC: 10D00Z1 Extraction of Products of Conception, Low, Open Approach (ICD-10-PCS; principal; 2020-03-14 01:27)
DX: O62.0 Primary inadequate contractions (principal); O24.32 Unspecified pre-existing diabetes mellitus in childbirth; Z37.0 Single live birth; Z3A.37 37 weeks gestation of pregnancy

== ENCOUNTER → 2020-07-30 | Outpatient (REF) | payer OTHER ==
[~2020-07-30] MED LIST changes: +ASPI81CH33 PO; +IBUP80TA PO; +INSUNSD SC; +INSURSD SC; +INSURSDRX SC
== END ==
LOC: M SFHCWAGY 13:55
PROVIDERS: ATTEND Obstetrics & Gynecology
DX: Z12.4 Encounter for screening for malignant neoplasm of cervix (principal); Z01.419 Encounter for gynecological examination (general) (routine) without abnormal findings

== ENCOUNTER → 2021-04-30 | Outpatient (CLI) | payer OTHER ==
[~2021-04-30] MED LIST changes: +E-Z-GAS II EFFERVESCENT PACKET (SODIUM BICARB./CITRIC ACID/SIMETHICONE) As Ordered ONE; +E-Z-HD 98% w/w 340GM SUSP BTL As Ordered ONE; +E-Z-PAQUE 96% w/w SUSP 176GM BTL As Ordered ONE
== END ==
LOC: M RAD 08:23
PROVIDERS: ATTEND Physician Assistant
DX: R11.2 Nausea with vomiting, unspecified (principal); K21.9 Gastro-esophageal reflux disease without esophagitis; R10.11 Right upper quadrant pain

== ENCOUNTER → 2021-08-12 | Outpatient (CLI) | payer OTHER ==
[~2021-08-12] MED LIST changes: -E-Z-GAS II EFFERVESCENT PACKET (SODIUM BICARB./CITRIC ACID/SIMETHICONE) As Ordered ONE; -E-Z-HD 98% w/w 340GM SUSP BTL As Ordered ONE; -E-Z-PAQUE 96% w/w SUSP 176GM BTL As Ordered ONE
== END ==
LOC: M RAD 08:19
PROVIDERS: ATTEND Physician Assistant
DX: R10.11 Right upper quadrant pain (principal); R11.2 Nausea with vomiting, unspecified
CPT/HCPCS: 78227; A9537

== ENCOUNTER → 2022-02-09 | Outpatient (CLI) | payer OTHER | LOC: M RAD 11:31 | PROVIDERS: ATTEND Surgery | DX: R11.2 Nausea with vomiting, unspecified (principal) | CPT/HCPCS: 78264; A9541 ==

== ENCOUNTER → 2022-09-07 | Outpatient (CLI) | payer OTHER | LOC: M WUC 10:59 | PROVIDERS: ATTEND Physician Assistant | DX: S93.401A Sprain of unspecified ligament of right ankle, initial encounter (principal); S93.601A Unspecified sprain of right foot, initial encounter; X58.XXXA Exposure to other specified factors, initial encounter; Y92.9 Unspecified place or not applicable; Y93.9 Activity, unspecified; Y99.9 Unspecified external cause status ==

== ENCOUNTER → 2022-09-16 | Outpatient (CLI) | payer OTHER | LOC: M WUC 08:10 | PROVIDERS: ATTEND Physician Assistant | DX: S99.921A Unspecified injury of right foot, initial encounter (principal); S99.911A Unspecified injury of right ankle, initial encounter ==

== ENCOUNTER → 2024-08-15 | Outpatient (CLI) | payer OTHER ==
[~2024-08-15] MED LIST changes: +INSU100V19 SC; -INSURSD SC
== END ==
LOC: M EKG 13:12
PROVIDERS: ATTEND Physician Assistant
DX: R00.2 Palpitations (principal)

== ENCOUNTER → 2024-08-16 | Outpatient (CLI) | payer OTHER ==
[2024-08-16 10:49] LABS: ALT/SGPT 20 U/L (7.0-40); AST/SGOT 17 U/L (<34); CALCIUM LEVEL 9.4 MG/DL (8.5-10.1); CARBON DIOXIDE LEVEL 27 MMOL/L (20-31); CHLORIDE LEVEL 106 MMOL/L (98-107); CHOLESTEROL LEVEL 209 MG/DL (<200); CHOLESTEROL RISK RATIO 3.25 (<5); CREATININE FOR GFR 0.66 MG/DL (0.55-1.30); GLOMERULAR FILTRATION RATE > 90.0 (>60); LDL CHOLESTEROL 124.3 MG/DL (<100); NON-HDL-C 144.7 MG/DL; POTASSIUM SERUM 4.8 MMOL/L (3.5-5.1); SODIUM LEVEL 143 MMOL/L (136-145); TRIGLYCERIDES LEVEL 102 MG/DL (<150)
[2024-08-16 10:51] LABS: BASO # 0.1 10^3/uL (0.0-0.2); BASO % 1.0 % (0.0-1.0); EOS # 0.1 10^3/uL (0.0-0.5); EOS % 2.1 % (0.0-3.0); LYMPH # 2.4 10^3/uL (1.5-5.0); LYMPH % 41.3 % (24.0-44.0); MONO # 0.4 10^3/uL (0.0-0.8); MONO % 7.4 % (2.0-8.0); NEUTROPHILS # 2.8 10^3/uL (1.5-8.5); NEUTROPHILS % 48.0 % (36.0-66.0); PLATELET COUNT, AUTOMATED 232 10^3/uL (150-450)
[2024-08-16 10:52] LABS: TOTAL 25(OH) VITAMIN D 35.1 NG/ML (20.0-100.0)
[2024-08-16 10:53] LABS: FREE T4 1.09 NG/DL (0.89-1.76)
[2024-08-16 11:12] LABS: ESTIMATED AVERAGE GLUCOSE 103.0 MG/DL (60-110)
== END ==
LOC: M PLALAB 07:43
DX: R11.2 Nausea with vomiting, unspecified (principal); J30.2 Other seasonal allergic rhinitis; R42 Dizziness and giddiness; Z78.9 Other specified health status; F41.9 Anxiety disorder, unspecified; E11.69 Type 2 diabetes mellitus with other specified complication

== ENCOUNTER → 2025-01-14 | Outpatient (REF) | payer OTHER ==
[~2025-01-14] MED LIST changes: -INSU100V19 SC
== END ==
LOC: M PLALAB 09:45
PROVIDERS: ATTEND Specialist
DX: N96 Recurrent pregnancy loss (principal)

== ENCOUNTER → 2025-01-16 | Outpatient (CLI) | payer OTHER | LOC: M PLALAB 12:46 | PROVIDERS: ATTEND Specialist | DX: N96 Recurrent pregnancy loss (principal) ==

== ENCOUNTER → 2025-01-28 | Outpatient (CLI) | payer OTHER | LOC: M PLALAB 07:15 | PROVIDERS: ATTEND Obstetrics & Gynecology | DX: Z34.80 Encounter for supervision of other normal pregnancy, unspecified trimester (principal) ==